=== PATIENT | female | born 1985 | race Caucasian/White ===

== ENCOUNTER → 2020-06-10 | Outpatient (CLI) | payer OTHER ==
[2015-09-16 22:50] VITALS: BP 177/106
[~2020-06-10] MED LIST: NAPR-682 PO; TRAM50TA PO
--- NOTE | 2020-06-10 11:30 | KCIC ---
EXAM: Left elbow, 3 views. HISTORY: Pain. COMPARISON: None. FINDINGS: 3 views of the left elbow are obtained. There is no fracture, dislocation or subluxation. T here is no elbow effusion. IMPRESSION: No acute osseous finding. Electronically signed by: Ailyn Henderson MD (06/10/2020 11:28 AM) [id number]
== END ==
LOC: KCIC 11:05
PROVIDERS: ATTEND Family Medicine
DX: M25.522 Pain in left elbow (principal)
CPT/HCPCS: 73080

== ENCOUNTER → 2020-06-26 | Outpatient (CLI) | payer OTHER ==
[2015-09-16 22:50] VITALS: BP 177/106
[~2020-06-26] MED LIST changes: +BACL20TA PO; +CHOL500050 PO; +CLONAZEPAM1 MG PO; +HYDR-2145 PO; +HYDR-2769 PO; +OXYC-325 PO; +VERA240C2 PO; +potassium OTC PO
== END ==
LOC: LAB 12:08
PROVIDERS: ATTEND Surgery
DX: Z01.812 Encounter for preprocedural laboratory examination (principal); Z20.822 Contact with and (suspected) exposure to COVID-19; K80.20 Calculus of gallbladder without cholecystitis without obstruction
CPT/HCPCS: U0003; U0005

== ENCOUNTER 2020-06-29 09:17 | Day surgery (SDC) | payer OTHER ==
[~2020-06-29] VITALS: Ht 157.5 cm; Wt 75.0 kg
[~2020-06-29 09:17] MED LIST changes: -BACL20TA PO; -CHOL500050 PO; -CLONAZEPAM1 MG PO; -HYDR-2145 PO; -HYDR-2769 PO; +HYDROmorphone 2 MG/ML VIAL IVP PRN; +IV RINGERS,LACTATED 1000ML 1,000 ML IV SCH; -OXYC-325 PO; +PROCHLORPERAZINE 10 MG/2 ML VIAL. IVP PRN; -VERA240C2 PO; +fentaNYL PF VIAL 100 MCG/2 ML VIAL IVP PRN; -potassium OTC PO
[2020-06-29] MEDS ORDERED: fentaNYL PF VIAL 250 MCG/5 ML VIAL ONE (09:50)
[2020-06-29] MEDS ORDERED: LIDOCAINE 2% PF 5 ML VIAL. ONE (09:50)
[2020-06-29] MEDS ORDERED: MIDAZOLAM HCL/PF 2 MG/2 ML VIAL. ONE (09:50)
[2020-06-29] MEDS ORDERED: VERA240C2 PO (09:50)
[2020-06-29] MEDS ORDERED: PROPOFOL 10 MG/ML (20ML) VIAL. IV ONE (09:50)
[2020-06-29] MEDS ORDERED: ROCURONIUM 50 MG/5 ML VIAL. ONE (09:50)
[2020-06-29] MEDS ORDERED: HYDR-2769 PO (09:51)
[2020-06-29] MEDS ORDERED: HYDR-2145 PO (09:51)
[2020-06-29] MEDS ORDERED: CHOL500050 PO (09:52)
[2020-06-29] MEDS ORDERED: CLONAZEPAM1 MG PO (09:52)
[2020-06-29] MEDS ORDERED: BACL20TA PO (09:53)
[2020-06-29] MEDS ORDERED: potassium OTC PO (09:54)
[2020-06-29] MEDS ORDERED: IOHEXOL 300 MG/ML 50 ML VIAL. ONE (10:20)
[2020-06-29] MEDS ORDERED: SURGICEL HEMOSTAT 4X8 EACH. ONE (10:21)
[2020-06-29] MEDS ORDERED: BUPIVACAINE MPF 0.5% 30 ML VIAL. ONE (10:21)
[2020-06-29] MEDS ORDERED: SEVOFLURANE 61 TO 120 MINUTES. IH ONE (10:46)
[2020-06-29] MEDS ORDERED: DEXAMETHASONE SOD PHOS 4 MG/ML VIAL ONE (10:46)
[2020-06-29] MEDS ORDERED: ONDANSETRON PF 4 MG/2 ML VIAL. ONE (10:46)
[2020-06-29] MEDS ORDERED: NEOSTIGMINE METHYLSULFATE 5 MG/5 ML SYRINGE. ONE (11:00)
[2020-06-29] MEDS ORDERED: GLYCOPYRROLATE 1 MG/5 ML VIAL. ONE (11:01)
[2020-06-29] MEDS ORDERED: KETOROLAC 30 MG/ML VIAL. ONE (11:12)
--- NOTE | 2020-06-29 11:28 | PDOC4 ---
Operative Note Operative Note Operative Note: Preoperative Diagnosis: Symptomatic cholelithiasis Postoperative Diagnosis: Same Procedure: Laparoscopic cholecystectomy with intraoperative cholangiogram Surgeons: Ravi Director Of Instruction: Stephanie KIDD Anesthesia: Gen. Estimated Blood Loss: 10 mL Specimen: Gallbladder to pathology Drains: None Complications: None Indications: The patient is a 34-year-old female who is been experiencing recurrent upper abdominal pain consistent with biliary colic. Surgical treatment was offered by means of a laparoscopic cholecystectomy. The risks of surgery were discussed which include bleeding, infection, bile duct injury, bile leak, pain, the potential for additional surgeries or procedures. The patient understands and would like to proceed. Description: The patient was taken to the operating room and laid supine on the operating table. General anesthesia was performed. The abdomen was prepped with ChloraPrep and draped in a standard surgical fashion. A small infraumbilical incision was made with a scalpel. The Veress needle was then inserted and a pneumoperitoneum was then created. A 5 mm trocar was then inserted and the laparoscope was introduced. In the upper midabdomen a 5 mm trocar was inserted and in the right upper quadrant two 2.3 mm mini lap graspers were inserted. The gallbladder was retracted cephalad. The cystic duct was dissected free from surrounding tissues. One clip was placed on the duct near the gallbladder junction. An opening was made in the duct and a cholangiocatheter placed within and secured with a clip. Using contrast dye and fluoroscopy an intraoperative cholangiogram was performed that appeared unremarkable. The clip and catheter were then withdrawn. Three clips were placed on the cystic duct and it was divided. The cystic artery was then identified, dissected free, doubly clipped and divided as well. The gallbladder was then mobilized away from the liver with cautery. The umbilical 5 millimeter trocar was exchanged for an 11 millimeter trocar. The gallbladder was then placed in an endoscopic bag and extracted at the umbilical trocar site. The fascia there was closed with an 0 Vicryl suture and infiltrated with 0.5% marcaine. All blood and irrigation fluid was suctioned and hemostasis was good. The remaining ports were removed and the pneumoperitoneum was relieved. The skin incisions were closed using 4-0 Monocryl suture. Steri-Strips and dressings were then applied. The patient tolerated the procedure well and was sent to the recovery room in stable condition. At the end of the case all counts were correct. SAVANNAH MISHRA MD June 29, 2020 11:28
--- NOTE | 2020-06-29 11:30 | DISCH ---
DISCHARGE INSTRUCTIONS Condition on Discharge Condition on Discharge: Stable Activity After Discharge Activity Instructions for Disc: Other, see below (no lifting over 20 lbs X 2 weeks) Diet after Discharge Diet after Discharge: Regular Wound Incision Care Wound/Incision Care: Other, see below (may remove bandaids and shower tomorrow, steristrips fall off on their own) Follow-Up Follow up with: Dr Mishra in 2 weeks in office, call for appointmetn [phone] SAVANNAH MISHRA MD June 29, 2020 11:30
[2020-06-29] MEDS ORDERED: oxyCODONE/APAP 5/325 1 TAB TABLET PO ONE ×2 (12:00)
[2020-06-29] MEDS ORDERED: OXYC-325 PO (12:02)
[2020-06-29] MEDS ORDERED: PROCHLORPERAZINE 10 MG/2 ML VIAL. ONE (12:13)
[2020-06-29] MEDS ORDERED: MORPHINE SULFATE 2 MG/ML VIAL. ONE (12:14)
[2020-06-29] MEDS: MORPHINE SULFATE 2 MG/ML VIAL. IVP PRN ×2 (12:19→12:30)
[2020-06-29] MEDS ORDERED: HYDROmorphone 2 MG/ML VIAL ONE (12:43)
[2020-06-29 13:04] VITALS: BP 120/74
--- NOTE | 2020-06-29 13:28 | RAD ---
EXAM: Intraoperative cholangiogram. HISTORY: Cholecystectomy. Pain. COMPARISON: None. FINDINGS: 4 fluoroscopic images were obtained during an intraoperative cholangiogram. The total fluor oscopy time is 16 seconds. The images demonstrate cannulation and contrast opacification of the bilia ry tree. There is also contrast opacification of the downstream pancreatic duct and proximal small sandro wel. There is mild biliary ductal dilatation. No retained stone or stricture is seen. IMPRESSION: Intraoperative cholangiogram demonstrating mild bladder ductal dilatation. No retained st one is seen. Electronically signed by: Ailyn Henderson MD (06/29/2020 1:26 PM) [facility]
--- NOTE | 2020-07-01 17:13 | PATHOLOGY ---
[facility] Accession Number: [id number] . 01 Material submitted: . gallbladder - GALLBLADDER . 01 Clinical history: . SYMPTOMATIC CHOLELITHIASIS LAPAROSCOPIC CHOLECYSTECTOMY GALL STONES . 02 Diagnosis: Gallbladder, laparoscopic cholecystectomy: - Cholelithiasis. - Chronic cholecystitis. LBQ 07/01/2020 1524 Local . 02 Comment: There is no evidence of malignancy. (JPM/db; 07/01/2020) . 02 Electronically signed: . Dilip Sauceda MD, Pathologist NPI- [id number] . 01 Gross description: . Fixative: formalin Labeled: gallbladder Specimen received: partially collapsed Dimensions: 8.7 x 3 x 2.5 cm Serosa: smooth holland green Lymph node: not identified Mucosa: velvety-without obvious lesion Average wall thickness: 0.2 cm Calculi: Multiple holland green measuring up to 1.5 cm Abnormalities: None . Pizza Chef body, fundus, and the cystic duct margin in cassette A1. ([facility]; 06/30/2020) . . AYDE/AYDE 06/30/2020 1805 Local . 02 Pathologist provided ICD-10: K80.10 . 02 CPT . 556062 Specimen Comment: A courtesy copy of this report has been sent to [phone], [phone] Specimen Comment: [id number] Specimen Comment: Report sent to / DR CASTILLO Performed at: 01 [facility] [address], [place] [id number] MD Sandip Torres MD Phone: [phone] Performed at: 02 [facility] [address] [place], [place] [id number] MD Dilip Sauceda MD Phone: [phone]
== END 2020-06-29 13:40 | disposition home or self-care (01) ==
LOC: SURG 09:17
PROVIDERS: ATTEND Surgery
DX: K80.10 Calculus of gallbladder with chronic cholecystitis without obstruction (principal); I10 Essential (primary) hypertension; F41.9 Anxiety disorder, unspecified; F17.210 Nicotine dependence, cigarettes, uncomplicated; Z79.899 Other long term (current) drug therapy; Z98.890 Other specified postprocedural states; Z88.0 Allergy status to penicillin
CPT/HCPCS: 47563; 74300; 81025; A4213; A4314; A4930; A6219; C1887; J0780; J1100; J1170; J1885; J1956; J2270; J2405; J2704; J2710; J3010; J3490; Q9967; A4452; A4657; J2250

== ENCOUNTER → 2020-12-15 | Outpatient (CLI) | payer OTHER ==
[~2020-12-15] MED LIST changes: +BACL20TA PO; +CHOL500050 PO; +CLONAZEPAM1 MG PO; +HYDR-2145 PO; +HYDR-2769 PO; -HYDROmorphone 2 MG/ML VIAL IVP PRN; -IV RINGERS,LACTATED 1000ML 1,000 ML IV SCH; +OXYC-325 PO; -PROCHLORPERAZINE 10 MG/2 ML VIAL. IVP PRN; +VERA240C2 PO; -fentaNYL PF VIAL 100 MCG/2 ML VIAL IVP PRN; +potassium OTC PO
--- NOTE | 2020-12-15 10:10 | KCIC ---
EXAM: Cervical spine, 3 views. HISTORY: Paresthesia. COMPARISON: None. FINDINGS: 3 views of the cervical spine are obtained. There is slight reversal of cervical lordosis. There is no listhesis. The vertebral bodies are normal in height. The disc spaces are preserved. IMPRESSION: No acute osseous finding. Electronically signed by: Ailyn Henderson MD (12/15/2020 10:07 AM) [id number]
== END ==
LOC: KCIC 09:00
PROVIDERS: ATTEND Family Medicine
DX: R20.2 Paresthesia of skin (principal)
CPT/HCPCS: 72040